=== PATIENT | male | born 1965 | race Caucasian/White ===

== ENCOUNTER 2017-08-05 20:33 | Observation (INO) | payer OTHER ==
[~2017-08-05] VITALS: Ht 193 cm; Wt 98.6 kg
[2017-08-05] MEDS ORDERED: SODIUM CHLORIDE 0.9% 1000ML 2,000 ML IV STA (21:09)
--- NOTE | 2017-08-05 21:16 | EMERGENCY ROOM VISIT NOTE ---
History Report prepared by Priscilla: Rodríguez Browning Under the Supervision of: Dr. Yoel Marin M.D. First contact with patient: 20:52 Chief Complaint: ARM PAIN Stated Complaint: NUMBNESS IN RIGHT ARM History of Present Illness The patient is a 51 year old male who presents to the Emergency Room with complaints of constant numbness to his right arm beginning earlier today. The patient states he was in the grocery store and reached into the cart to pick something up. He reports his hand locked and his entire arm went numb. The patient notes it lasted for about 5 minutes, would get better, and then numb again. He states this process repeated for a little, and the last time it was numb, it was numb for around an hour. The patient reports he was driving home from the grocery store and he could not lift his arm to place it on the steering wheel. He notes he was at his neighbor's house having his blood pressure taken when he felt better. The patient states he could lift his arm up until it was parallel with the ground. He reports he could not lift it higher than parallel because it would give out. The patient notes he thought his arm was slightly red. He states he currently thinks his arm is back to 90% function because the upper arm is still tingling. The patient reports he was leaving work this afternoon and he had a strong odor to his urine. He notes it has been a stressful week, and he has not been keeping up with his fluids. The patient states he does not take medication daily, and he has not seen his PCP in the past 5-6 years. He reports he typically drinks around four alcoholic drinks a day. The patient notes he has not drank today, and he has gone days without drinking alcohol before. 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 The patient denies fevers, chills , cough, congestion, nausea, vomiting, diarrhea, neck pain, a history of smoking , dizziness, and headaches. Source of History: patient Onset: earlier today Position: arm (right) Symptom Intensity: 10% disabled currently Quality: numbness Timing: constant Associated Symptoms: No fevers, No chills, No headache, No cough, No neck pain, No nausea, No vomiting, No diarrhea Note: Denies: congestion, a history of smoking, dizziness Review of Systems See HPI for pertinent positives and negatives. A total of ten systems were reviewed and were otherwise negative. Past Medical & Surgical Medical Problems: (1) No Known Active Medical Problems Family History Patient reports no known family medical history. Social History Smoking Status: Never Smoker Alcohol Use: occasionally Marital Status: Housing Status: lives with significant other Occupation Status: employed Current/Historical Medications Scheduled Tadalafil (Cialis), 10 MG PO UD Scheduled PRN Ibuprofen Tab (Advil), 600 MG PO TID PRN for Headache or Pain Allergies Coded Allergies: No Known Allergies (Unverified , 08/05/17) Physical Exam Vital Signs Date Time Temp Pulse Resp B/P (MAP) Pulse Ox O2 Delivery O2 Flow Rate FiO2 08/05/17 22:47 63 18 147/94 98 Room Air 08/05/17 21:40 69 08/05/17 21:35 97 Room Air 08/05/17 20:43 36.3 78 20 156/93 99 Room Air Physical Exam GENERAL: Awake, alert, anxious-appearing, in no distress HENT: Normocephalic, atraumatic. Oropharynx has dry mucous membranes, otherwise unremarkable. EYES: Normal conjunctiva. Sclera non-icteric. NECK: Supple. No nuchal rigidity. FROM. No JVD. RESPIRATORY: Clear to auscultation. CARDIAC: Regular rate, normal rhythm. Extremities warm and well perfused. Pulses equal. ABDOMEN: Soft, non-distended. No tenderness to palpation. No rebound or guarding. No masses. RECTAL: Deferred. MUSCULOSKELETAL: Chest examination reveals no tenderness. The back is symmetrical on inspection without obvious abnormality. There is no CVA tenderness to palpation. No joint edema. LOWER EXTREMITIES: Calves are equal size bilaterally and non-tender. No edema. No discoloration. NEURO: Normal sensorium. No sensory or motor deficits noted. normal cerebellar function with ecyrnz-yb-tcpf, alternating palms, bway-np-ocyv SKIN: No rash or jaundice noted. Medical Decision & Procedures ER Provider Diagnostic Interpretation: Radiology results as stated below per my review and radiologist interpretation: RIGHT SHOULDER 3 VIEWS HISTORY: Right arm pain, numbness, weakness COMPARISON: None. FINDINGS: There is no fracture or dislocation. Soft tissues are unremarkable. The right clavicle appears intact. IMPRESSION: No fracture or dislocation within the right shoulder. Electronically signed by: Chuck Berkowitz M.D. 08/05/2017 10:12 PM Dictated Date/Time: 08/05/2017 10:11 PM CHEST ONE VIEW PORTABLE HISTORY: Atypical CHEST PAIN COMPARISON: None. FINDINGS: The lungs are clear. Cardiac silhouette is normal in size. No pleural effusions. No pneumothorax. IMPRESSION: No acute process. Electronically signed by: Chuck Berkowitz M.D. 08/05/2017 10:16 PM Dictated Date/Time: 08/05/2017 10:15 PM --- STATRAD PreliminaryFindingsOnly See Final Report For Complete Findings CTANECK: Normal CTAof the neck. No definite evidence of arterial thoracic outlet syndrome. No evidence of narrowing/compression of the left subclavian vein. Evaluation of the right subclavian vein is somewhat limited byartifact from the IVcontrast, but there also does not appear to be significant narrowing/ compression of the right subclavian vein. Ossifications in the nuchal ligament are likelyrelated to remote trauma. PreliminaryFindingsOnly See Final Report For Complete Findings CT HEAD: No acute intracranial abnormalityidentified. Mild mucosal thickening in the anterior sphenoid sinuses and ethmoid air cells. Mild mucosal thickening in the maxillarysinuseswith small polyps versus mucous retention cysts in the left maxillarysinus. Tinypolyp versus mucous retention cyst in the left frontal sinus. CTAHEAD: Normal CTAof the head. Radiologist: Dave Diaz M.D. Laboratory Results 08/05/17 21:35 Red Blood Count 4.26, Mean Corpuscular Volume 86.6, Mean Corpuscular Hemoglobin 30.8, Mean Corpuscular Hemoglobin Concent 35.5, Mean Platelet Volume 8.9, Neutrophils (%) (Auto) 43.7, Lymphocytes (%) (Auto) 37.6, Monocytes (%) (Auto) 9.0, Eosinophils (%) (Auto) 8.9, Basophils (%) (Auto) 0.6, Neutrophils # (Auto) 2.70, Lymphocytes # (Auto) 2.33, Monocytes # (Auto) 0.56, Eosinophils # (Auto) 0.55, Basophils # (Auto) 0.04 08/05/17 21:35 Test 08/05/17 21:35 4/12/18 22:55 White Blood Count 6.19 K/uL (4.8-10.8) Red Blood Count 4.26 M/uL (4.7-6.1) Hemoglobin 13.1 g/dL (14.0-18.0) Hematocrit 36.9 % (42-52) Mean Corpuscular Volume 86.6 fL (80-100) Mean Corpuscular Hemoglobin 30.8 pg (25-34) Mean Corpuscular Hemoglobin Concent 35.5 g/dl (32-36) Platelet Count 287 K/uL (130-400) Mean Platelet Volume 8.9 fL (7.4-10.4) Neutrophils (%) (Auto) 43.7 % Lymphocytes (%) (Auto) 37.6 % Monocytes (%) (Auto) 9.0 % Eosinophils (%) (Auto) 8.9 % Basophils (%) (Auto) 0.6 % Neutrophils # (Auto) 2.70 K/uL (1.4-6.5) Lymphocytes # (Auto) 2.33 K/uL (1.2-3.4) Monocytes # (Auto) 0.56 K/uL (0.11-0.59) Eosinophils # (Auto) 0.55 K/uL (0-0.5) Basophils # (Auto) 0.04 K/uL (0-0.2) RDW Standard Deviation 40.4 fL (36.4-46.3) RDW Coefficient of Variation 12.7 % (11.5-14.5) Immature Granulocyte % (Auto) 0.2 % Immature Granulocyte # (Auto) 0.01 K/uL (0.00-0.02) Anion Gap 4.0 mmol/L (3-11) Est Creatinine Clear Calc Drug Dose 98.2 ml/min Estimated GFR () 91.0 Estimated GFR (Non- 78.5 BUN/Creatinine Ratio 19.4 (10-20) Calcium Level 8.2 mg/dl (8.5-10.1) Magnesium Level 2.2 mg/dl (1.8-2.4) Total Bilirubin 0.6 mg/dl (0.2-1) Direct Bilirubin 0.1 mg/dl (0-0.2) Aspartate Amino Transf (AST/SGOT) 20 U/L (15-37) Alanine Aminotransferase (ALT/SGPT) 42 U/L (12-78) Alkaline Phosphatase 73 U/L (45-117) Troponin I < 0.015 ng/ml (0-0.045) Total Protein 6.9 gm/dl (6.4-8.2) Albumin 4.0 gm/dl (3.4-5.0) Lipase 125 U/L (73-393) Thyroid Stimulating Hormone (TSH) 1.050 uIu/ml (0.300-4.500) Urine Color YELLOW Urine Appearance CLEAR (CLEAR) Urine pH 6.0 (4.5-7.5) Urine Specific [place] 1.012 (1.000-1.030) Urine Protein NEG (NEG) Urine Glucose (UA) NEG (NEG) Urine Ketones NEG (NEG) Urine Occult Blood NEG (NEG) Urine Nitrite NEG (NEG) Urine Bilirubin NEG (NEG) Urine Urobilinogen NEG (NEG) Urine Leukocyte Esterase NEG (NEG) Laboratory results reviewed by me Medications Administered Medications (Trade) Dose Ordered Sig/Jumana Route Start Time Stop Time Status Last Admin Dose Admin Sodium Chloride 2,000 ml @ 999 mls/hr Q2H1M STAT IV 08/05/17 21:09 08/05/17 23:09 DC 08/05/17 21:35 999 MLS/HR ECG Per My Interpretation Indication: other (numbness) Rate (beats per minute): 64 Rhythm: normal sinus Findings: no acute ischemic change, other (Normal axis) ED Course 2056: The patient was evaluated in room B09. A complete history and physical exam was performed. 2222: The nurse informed me the patient is having similar symptoms to a panic attack. 2317: I reevaluated the patient and discussed current exam findings with him. Medical Decision I reviewed the patient's past medical history, medications, and the nursing notes as described above. Differential diagnosis: Etiologies such as metabolic, infection, hypo/hyperglycemia, electrolyte abnormalities, cardiac sources, intracerebral event, toxicologic, neurologic, as well as others were entertained. The patient is a 51-year-old gentleman who presents emergency department after having a transient episode of right arm numbness and weakness that occurred prior to arrival per hpi. On arrival the patient is anxious appearing but no acute distress, afebrile stable vital signs. He is neurologically intact including normal cerebellar function with sjdytw-de-gfyf, alternating palms, iwtu-sq-jpws. Labs unremarkable. EKG unremarkable. Chest x-ray negative. CTA of the head and neck with contrast unremarkable for acute infarcts or large vessel occlusion. Moreover there is no evidence of subclavian compromise to suggest thoracic outlet syndrome given that the patient reports that his symptoms occurred when he was reaching out to grab something with his arm and noticed it briefly turned darker red. Given the patient's report of prolonged albeit transient right upper extremity paresis, it is reasonable to admit the patient for further TIA and CVA rule out. Case was discussed with Dr. Pryor [facility] hospitalist, who will evaluate the patient for admission. Medication Reconcilliation Current Medication List: was personally reviewed by me Blood Pressure Screening Patient's blood pressure: Elevated blood pressure Blood pressure disposition: Elevated BP felt to be situational Consults Time Called: [id number] Consulting Physician: Dr. P[facility] Returned Call: [phone] Will evaluate patient for admission. Impression Primary Impression: Right arm weakness Scribe Attestation The scribe's documentation has been prepared under my direction and personally reviewed by me in its entirety. I confirm that the note above accurately reflects all work, treatment, procedures, and medical decision making performed by me. Departure Information Patient Instructions My [facility]
[2017-08-05 21:50] LABS: BASO % 0.6 %; BASO ABS # 0.04 K/uL (0-0.2); EOS % 8.9 %; EOS ABS # 0.55 K/uL (0-0.5); HEMATOCRIT 36.9 % (42-52); HEMOGLOBIN 13.1 g/dL (14.0-18.0); IG# 0.01 K/uL (0.00-0.02); LYMPH % 37.6 %; LYMPH ABS # 2.33 K/uL (1.2-3.4); MEAN CELL VOLUME 86.6 fL (80-100); MEAN CORPUSCULAR HEMOGLOBIN 30.8 pg (25-34); MEAN CORPUSCULAR HGB CONC 35.5 g/dl (32-36); MEAN PLATELET VOLUME 8.9 fL (7.4-10.4); MONO ABS # 0.56 K/uL (0.11-0.59); NEUT % 43.7 %; PLATELET COUNT 287 K/uL (130-400); RED CELL DISTRIBUTION WIDTH CV 12.7 % (11.5-14.5); RED CELL DISTRIBUTION WIDTH SD 40.4 fL (36.4-46.3); WHITE BLOOD COUNT 6.19 K/uL (4.8-10.8)
[2017-08-05 22:07] LABS: ALT/SGPT 42 U/L (12-78); AST/SGOT 20 U/L (15-37); BLOOD UREA NITROGEN 21 mg/dl (7-18); CALCIUM 8.2 mg/dl (8.5-10.1); CARBON DIOXIDE 26 mmol/L (21-32); CREATININE 1.08 mg/dl (0.60-1.40); GLUCOSE 89 mg/dl (70-99); LIPASE 125 U/L (73-393); POTASSIUM 3.6 mmol/L (3.5-5.1); SODIUM 140 mmol/L (136-145)
--- NOTE | 2017-08-05 22:14 | DIAGNOSTIC IMAGING REPORT ---
RIGHT SHOULDER 3 VIEWS HISTORY: Right arm pain, numbness, weakness COMPARISON: None. FINDINGS: There is no fracture or dislocation. Soft tissues are unremarkable. The right clavicle appears intact. IMPRESSION: No fracture or dislocation within the right shoulder. Electronically signed by: Chuck Berkowitz M.D. 08/05/2017 10:12 PM Dictated Date/Time: 08/05/2017 10:11 PM
--- NOTE | 2017-08-05 22:17 | DIAGNOSTIC IMAGING REPORT ---
CHEST ONE VIEW PORTABLE HISTORY: Atypical CHEST PAIN COMPARISON: None. FINDINGS: The lungs are clear. Cardiac silhouette is normal in size. No pleural effusions. No pneumothorax. IMPRESSION: No acute process. Electronically signed by: Chuck Berkowitz M.D. 08/05/2017 10:16 PM Dictated Date/Time: 08/05/2017 10:15 PM
[2017-08-05 22:18] LABS: ALKALINE PHOSPHATASE 73 U/L (45-117); TOTAL PROTEIN 6.9 gm/dl (6.4-8.2)
[2017-08-05] MEDS ORDERED: TADA10TA PO (22:54)
[2017-08-05] MEDS ORDERED: IBUP-103 PO (22:54)
[2017-08-06] VITALS (8 sets, daily range): BP systolic 123–171; BP diastolic 75–93; PULSE 52–71; TEMP 36.3–37.1; O2SAT 96–99; Ht 193 cm; Wt 98.6 kg
--- NOTE | 2017-08-06 00:15 | History and Physical ---
History & Physical Date & Time of Service: Aug 06, 2017 at 00:15 Chief Complaint: Numbness In Right Arm Primary Care Physician: Joe Lunsford III, M.D. History of Present Illness Source: patient, family Patient is a 51-year-old male with past medical history of alcohol use disorder presents with history of sudden onset of right arm weakness and numbness. Patient reports that he was shopping at a grocery store around 7 PM and was trying to chart picker an object when he started to notice "locking of hand" and right numbness. He states the symptoms resolved after 5 minutes and again had recurrence of right arm weakness and numbness. Symptoms persisted for about 1 hour prior to ED arrival. Patient also reports a brief episode when patient could not lift his right arm above his shoulder level. Currently his symptoms resolved while in ED. patient states he is under a lot of stress lately secondary to work. 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 Denies any drug use or alcohol intake today. Preliminary Neck CTA showed no definite evidence of arterial thoracic outlet syndrome and CT head showed no acute intracranial abnormality. Denies any history of chest pain, SOB, dizziness, pedal edema, diaphoresis, cough, fever, chills, fall, head trauma, LOC, headache, change in vision, slurred speech, facial deformity, bowel/bladder incontinence, nausea, vomiting, abdominal pain, diarrhea, dysuria. Past Medical/Surgical History Medical Problems: Right Arm weakness, Alcohol Use Disorder Family History FH: heart disease GRANDFATHER Lung cancer FATHER Stroke GRANDFATHER Reviewed as above Social History Smoking Status: Never Smoker Alcohol Use: 4 drinks on most days Drug Use: none (denies) Marital Status: Occupational Status: employed Allergies Coded Allergies: No Known Allergies (Unverified , 08/05/17) Home Medications Scheduled Tadalafil (Cialis), 10 MG PO UD Scheduled PRN Ibuprofen Tab (Advil), 600 MG PO TID PRN for Headache or Pain Review of Systems See HPI for pertinent positives & negatives. A total of 10 systems reviewed and were otherwise negative. Physical Exam Vital Signs Date Time Temp Pulse Resp B/P (MAP) Pulse Ox O2 Delivery O2 Flow Rate FiO2 08/05/17 22:47 63 18 147/94 98 Room Air 08/05/17 21:40 69 08/05/17 21:35 97 Room Air 08/05/17 20:43 36.3 78 20 156/93 99 Room Air General Appearance: WD/WN, no apparent distress Head: normocephalic, atraumatic Eyes: normal inspection, PERRL, EOMI, sclerae normal ENT: normal ENT inspection, hearing grossly normal Neck: supple, trachea midline Respiratory/Chest: chest non-tender, lungs clear, normal breath sounds, no respiratory distress, no accessory muscle use Cardiovascular: regular rate, rhythm, no edema, no murmur Abdomen/GI: normal bowel sounds, non tender, soft Back: normal inspection Extremities/Musculoskelatal: normal inspection, no pedal edema Neurologic/Psych: neon pumper II-XII nml as tested, no motor/sensory deficits, alert, normal mood/affect, normal reflexes, oriented x 3 Skin: normal color, warm/dry Diagnostics Laboratory Results Results Past 24 Hours Test 08/05/17 21:35 08/05/17 22:55 Range/Units White Blood Count 6.19 4.8-10.8 K/uL Red Blood Count 4.26 4.7-6.1 M/uL Hemoglobin 13.1 14.0-18.0 g/dL Hematocrit 36.9 42-52 % Mean Corpuscular Volume 86.6 80-100 fL Mean Corpuscular Hemoglobin 30.8 25-34 pg Mean Corpuscular Hemoglobin Concent 35.5 32-36 g/dl Platelet Count 287 130-400 K/uL Mean Platelet Volume 8.9 7.4-10.4 fL Neutrophils (%) (Auto) 43.7 % Lymphocytes (%) (Auto) 37.6 % Monocytes (%) (Auto) 9.0 % Eosinophils (%) (Auto) 8.9 % Basophils (%) (Auto) 0.6 % Neutrophils # (Auto) 2.70 1.4-6.5 K/uL Lymphocytes # (Auto) 2.33 1.2-3.4 K/uL Monocytes # (Auto) 0.56 0.11-0.59 K/uL Eosinophils # (Auto) 0.55 0-0.5 K/uL Basophils # (Auto) 0.04 0-0.2 K/uL RDW Standard Deviation 40.4 36.4-46.3 fL RDW Coefficient of Variation 12.7 11.5-14.5 % Immature Granulocyte % (Auto) 0.2 % Immature Granulocyte # (Auto) 0.01 0.00-0.02 K/uL Sodium Level 140 136-145 mmol/L Potassium Level 3.6 3.5-5.1 mmol/L Chloride Level 110 98-107 mmol/L Carbon Dioxide Level 26 21-32 mmol/L Anion Gap 4.0 3-11 mmol/L Blood Urea Nitrogen 21 7-18 mg/dl Creatinine 1.08 0.60-1.40 mg/dl Est Creatinine Clear Calc Drug Dose 98.2 ml/min Estimated GFR () 91.0 Estimated GFR (Non- 78.5 BUN/Creatinine Ratio 19.4 10-20 Random Glucose 89 70-99 mg/dl Calcium Level 8.2 8.5-10.1 mg/dl Magnesium Level 2.2 1.8-2.4 mg/dl Total Bilirubin 0.6 0.2-1 mg/dl Direct Bilirubin 0.1 0-0.2 mg/dl Aspartate Amino Transf (AST/SGOT) 20 15-37 U/L Alanine Aminotransferase (ALT/SGPT) 42 12-78 U/L Alkaline Phosphatase 73 45-117 U/L Troponin I < 0.015 0-0.045 ng/ml Total Protein 6.9 6.4-8.2 gm/dl Albumin 4.0 3.4-5.0 gm/dl Lipase 125 73-393 U/L Thyroid Stimulating Hormone (TSH) 1.050 0.300-4.500 uIu/ml Urine Color YELLOW Urine Appearance CLEAR CLEAR Urine pH 6.0 4.5-7.5 Urine Specific [place] 1.012 1.000-1.030 Urine Protein NEG NEG Urine Glucose (UA) NEG NEG Urine Ketones NEG NEG Urine Occult Blood NEG NEG Urine Nitrite NEG NEG Urine Bilirubin NEG NEG Urine Urobilinogen NEG NEG Urine Leukocyte Esterase NEG NEG Diagnostic Radiology CT HEAD: No acute intracranial abnormality identified. Mild mucosal thickening in the anterior sphenoid sinuses and ethmoid air cells. Mild mucosal thickening in the maxillary sinuses with small polyps versus mucous retention cysts in the left maxillary sinus. Tiny polyp versus mucous retention cyst in the left frontal sinus. CTA Neck: Normal CTA of the neck No definite evidence of arterial thoracic outlet syndrome. EKG EKG:NSR, QTC:400 Impression Assessment and Plan Stroke like symptoms: Possible TIA Presented with transient Right arm weakness, numbness Preliminary CT Head and CTA neck: No acute process Shoulder X ray:No fracture or dislocation within the right shoulder Admit in Tele Stroke work up including lipid panel, A1C, ECHO Speech and swallow eval Start aspirin Neuro checks, Neurology consult PT/OT Allow permissive HTN in setting of possible acute CVA/TIA Further work up as per Neurology TSH: normal Toxicology Screen:pending Alcohol Use: Started on thiamine and folic acid No known history of withdrawal in the past Thyroid Nodule: Incidental finding on CTA neck TSH: normal Further work up as outpatient DVT Px: SCDs Code Status: Full Code Disposition: Expect to discharge home when stable. Resuscitation Status VTE Prophylaxis Will order VTE Prophylaxis: Yes
[2017-08-06] MEDS ORDERED: ACETAMINOPHEN 325 MG TAB PO PRN (01:15)
[2017-08-06] MEDS ORDERED: ONDANSETRON INJ 2 MG/ML 2 ML VIAL IV PRN (01:15)
[2017-08-06] MEDS ORDERED: ASPIRIN 325 MG ECTAB PO STA (01:22)
[2017-08-06] MEDS ORDERED: PHARMACIST DISCHARGE MED REC CONSULT PRN (01:30)
[2017-08-06] MEDS ORDERED: IV FLUIDS COMPLETED PRN (01:45)
[2017-08-06] MEDS ORDERED: SODIUM CHLORIDE 0.9% 500ML 500 ML IV ONE (02:15)
[2017-08-06 07:06] LABS: HEMATOCRIT 35.5 % (42-52); HEMOGLOBIN 12.3 g/dL (14.0-18.0); MEAN CELL VOLUME 86.6 fL (80-100); MEAN CORPUSCULAR HGB CONC 34.6 g/dl (32-36); MEAN PLATELET VOLUME 8.9 fL (7.4-10.4); PLATELET COUNT 258 K/uL (130-400); RED CELL DISTRIBUTION WIDTH CV 12.6 % (11.5-14.5); RED CELL DISTRIBUTION WIDTH SD 40.2 fL (36.4-46.3); WHITE BLOOD COUNT 5.93 K/uL (4.8-10.8)
--- NOTE | 2017-08-06 07:09 | DIAGNOSTIC IMAGING REPORT ---
CT ANGIOGRAPHY OF THE NECK WITH CONTRAST CLINICAL HISTORY: Transient right arm numbness. Evaluate for thoracic outlet syndrome. COMPARISON STUDY: No previous studies for comparison. Technique: CT angiography of the carotid and vertebral arteries was obtained using [employer] 320 IV and 3D reconstruction on an independent workstation. NASCET criteria was utilized. A dose lowering technique was utilized adhering to the principles of ALARA. Findings: Lung apices are clear. A 1 cm right lobe thyroid nodule is noted. Epiglottis is normal. No cervical lymphadenopathy or mass is identified by CT. The bilateral common carotid, internal carotid and vertebral arteries are patent. There is no stenosis or dissection. Evaluation for right-sided thoracic outlet syndrome is compromised due to streak artifact from contrast within the right subclavian vein. However, the vein does not appear compressed and the right subclavian artery is patent. No mass or cervical rib is noted. The left subclavian vein is not compressed. The left subclavian artery is patent. IMPRESSION: 1. Unremarkable CTA of the neck. 2. No evidence for thoracic outlet syndrome. Evaluation for right-sided thoracic outlet syndrome mildly compromised due to streak artifact from contrast within the right subclavian vein but no significant narrowing of the right subclavian artery or vein. No mass or cervical rib. Electronically signed by: Samuel Corbett M.D. 08/06/2017 7:08 AM Dictated Date/Time: 08/06/2017 7:02 AM
--- NOTE | 2017-08-06 07:15 | DIAGNOSTIC IMAGING REPORT ---
CT ANGIOGRAM OF THE BRAIN COMBO CLINICAL HISTORY: Transient ischemic attack. COMPARISON STUDY: No priors. TECHNIQUE: Unenhanced axial CT scan of the brain is performed. Subsequently, following the IV administration of 93 cc of Optiray 320, CT angiogram of the brain was performed from the skull base to the vertex. Images are reviewed in the axial, sagittal, and coronal planes. 3-D MIPS images are created and assessed. IV contrast was administered without complication. A dose lowering technique was utilized adhering to the principles of ALARA. CT DOSE: 1116.01 mGy.cm FINDINGS: Brain parenchyma: The brain parenchyma is normal in appearance. There is no hemorrhage, mass effect, or evidence of acute territorial ischemia by CT criteria. There is no evidence of enhancing mass lesion on the angiogram phase images. No extra-axial fluid collection is seen. Ferguson-white matter differentiation is preserved. Ventricles, sulci, and cisterns: Normal in configuration. CT angiogram of the brain: There is mild atherosclerotic calcification of the cavernous carotid arteries. There is a right posterior communicating artery. The internal carotid arteries are widely patent, as are the anterior and middle cerebral arteries. The vertebrobasilar system and posterior cerebral arteries are widely patent. The vertebral arteries are codominant. There is no aneurysm, high-grade stenosis, or focal vessel cutoff identified throughout the intracranial circulation. Dural sinuses: Clear as visualized. Orbits: The bony orbits are intact. The orbital contents are normal as visualized. Sinuses and mastoids: Trace mucosal thickening is seen in the maxillary antra, the left sphenoid sinus, and ethmoid sinuses. The mastoid air cells are well pneumatized. Calvarium: Unremarkable. IMPRESSION: 1. There is no hemorrhage, mass effect, or evidence of acute territorial ischemia by CT criteria. 2. Unremarkable CT angiogram of the brain. Electronically signed by: Jere Younger M.D. 08/06/2017 7:14 AM Dictated Date/Time: 08/06/2017 7:10 AM
[2017-08-06 07:39] LABS: CALCIUM 7.9 mg/dl (8.5-10.1); CREATININE 0.97 mg/dl (0.60-1.40); POTASSIUM 3.7 mmol/L (3.5-5.1)
[2017-08-06 07:51] LABS: HEMOGLOBIN A1C 5.4 % (4.5-5.6)
[2017-08-06] MEDS: ASPIRIN 81 MG ECTAB PO SCH (08:43)
[2017-08-06] MEDS: THIAMINE HCL 100 MG TAB PO SCH (08:43)
--- NOTE | 2017-08-06 11:06 | ECHOCARDIOGRAM REPORT ---
*NOTICE TO RECEIVING [facility] [employer] This information is strictly Confidential and protected under [place] law. [place] law prohibits you from making any further disclosure of this information unless further disclosure is expressly permitted by the written consent of the person to whom it pertains or is authorized by law. A general authorization for the release of medical or other information is not sufficient for this purpose. Hospital accepts no responsibility if the information is made available to any other person, INCLUDING THE PATIENT. Interpretation Summary * Name: PASHA HOBBS Study Date: 08/06/2017 07:19 AM BP: 78/148 mmHg * Patient Location: C.2T\S\S239\S\2 HR: 61 * : 1965 (M/d/yyyy) Gender: Male Height: 76 in * Age: 51 yrs Ethnicity: CA Weight: 226 lb * Ordering Physician: Charbel Pryor * Referring Physician: Self, Referred * Performed By: Leyla Dias RDCS * * Reason For Study: Stroke-like symptoms * BSA: 2.3 m2 * -- Conclusions -- * The left ventricle is normal in size. * Left ventricular systolic function is normal. * Ejection Fraction = 55-60%. * The right ventricular systolic function is normal. * The left atrial size is normal. * Right atrial size is normal. * Injection of contrast documented an interatrial shunt. * This is a low risk PFO. Procedure Details * A complete two-dimensional transthoracic echocardiogram was performed (2D, M-mode, Doppler and color flow Doppler). * A saline contrast injection was performed to assess for cardiac shunting. * The injection was performed through an intravenous line in the right arm. * The attending nurse who injected the saline contrast was Daryl Greene RN. * A total of 10 cc of agitated saline was given. Left Ventricle * The left ventricle is normal in size. * There is normal left ventricular wall thickness. * Ejection Fraction = 55-60%. * Left ventricular systolic function is normal. Right Ventricle * The right ventricle is normal size. * The right ventricular systolic function is normal. Atria * The left atrial size is normal. * Right atrial size is normal. * Injection of contrast documented an interatrial shunt. Mitral Valve * The mitral valve anatomy is normal. * There is trace mitral regurgitation. Tricuspid Valve * The tricuspid valve anatomy is normal. * Significant tricuspid regurgitation is absent. Aortic Valve * The aortic valve is trileaflet. * The aortic valve opens well. * Trace aortic regurgitation. Pulmonic Valve * The pulmonic valve is not well seen, but is grossly normal. * There is no significant pulmonary regurgitation. Great Vessels * The aortic root and proximal ascending aorta are normal sized. Pericardium/Pleural * There is no pericardial effusion. MMode 2D Measurements and Calculations IVSd 0.96 cm LVIDd 4.3 cm LVIDs 2.9 cm LVPWd 1.2 cm IVS/LVPW 0.83 FS 32.7 % EDV(Teich) 84.6 ml ESV(Teich) 32.7 ml EF(Teich) 61.3 % EDV(cubed) 81.4 ml ESV(cubed) 24.9 ml EF(cubed) 69.5 % LV mass(C)d 156.3 grams LV mass(C)dI 67.0 grams/m\S\2 SV(Teich) 51.9 ml SI(Teich) 22.2 ml/m\S\2 SV(cubed) 56.5 ml SI(cubed) 24.2 ml/m\S\2 Ao root diam 3.1 cm Ao root area 7.8 cm\S\2 ACS 2.4 cm LA dimension 3.9 cm asc Aorta Diam 3.0 cm LA/Ao 1.2 LVOT diam 2.0 cm LVOT area 3.2 cm\S\2 LVAd ap4 31.4 cm\S\2 LVLd ap4 8.0 cm EDV(MOD-sp4) 99.7 ml EDV(sp4-el) 104.2 ml LVAs ap4 19.2 cm\S\2 LVLs ap4 6.9 cm ESV(MOD-sp4) 43.6 ml ESV(sp4-el) 45.2 ml EF(MOD-sp4) 56.3 % EF(sp4-el) 56.6 % LVAd ap2 34.7 cm\S\2 LVLd ap2 8.4 cm EDV(MOD-sp2) 118.5 ml EDV(sp2-el) 122.5 ml LVAs ap2 20.1 cm\S\2 LVLs ap2 6.7 cm ESV(MOD-sp2) 50.2 ml ESV(sp2-el) 51.0 ml EF(MOD-sp2) 57.7 % EF(sp2-el) 58.4 % LVLd %diff 4.1 % EDV(MOD-bp) 110.6 ml LVLs %diff -2.76 % ESV(MOD-bp) 46.6 ml EF(MOD-bp) 57.9 % SV(MOD-sp4) 56.1 ml SI(MOD-sp4) 24.0 ml/m\S\2 SV(MOD-sp2) 68.4 ml SI(MOD-sp2) 29.3 ml/m\S\2 SV(MOD-bp) 64.0 ml SI(MOD-bp) 27.4 ml/m\S\2 SV(sp4-el) 59.0 ml SI(sp4-el) 25.3 ml/m\S\2 SV(sp2-el) 71.6 ml SI(sp2-el) 30.7 ml/m\S\2 Doppler Measurements and Calculations MV E max merissa 86.3 cm/sec MV A max merissa 65.8 cm/sec MV E/A 1.3 MV dec time 0.27 sec Ao V2 max 94.2 cm/sec Ao max PG 3.5 mmHg Ao max PG (full) 0.54 mmHg LAWSON(V,A) 3.0 cm\S\2 LAWSON(V,D) 3.0 cm\S\2 LV V1 max PG 3.0 mmHg LV V1 max 86.7 cm/sec PA V2 max 98.4 cm/sec PA max PG 3.9 mmHg PA acc slope 349.4 cm/sec\S\2 PA acc time 0.18 sec PA pr(Accel) -0.17 mmHg
--- NOTE | 2017-08-06 14:17 | Neurology Consultation ---
Neurology Consultation Date of Consultation: Aug 06, 2017. Attending Physician: Joe Bejarano M.D. Primary Care Physician: Joe Lunsford III, M.D. Reason for Consultation: stroke like symptoms History of Present Illness Source: patient, spouse Boone is a 51 year old male with PMH EtOH use disorder presented with a sudden onset of right arm hand cramping and numbness. 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 They symptoms resolved in about 5 minutes and again had recurrence of right arm cramping and numbness. This recurred another time in total the symptoms last about 1 hours. There was a brief moment he couldn't lift his right arm above his shoulder level. He is under a lot of stress lately secondary to work. 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 Neck CTA showed no definite evidence of arterial thoracic outlet syndrome and CT head showed no acute intracranial abnormality. Denies history of CP, SOB, abdominal pain, migraine history, N,V, vision changes, slurred speech, hearing loss, falls or trauma to shoulder, no tick bites, no starting or stopping medications, drinks a pot of coffee daily. Past Medical/Surgical History Medical Problems: (1) Right arm weakness Status: Acute Social History Smoking Status: Never smoker Smokeless Tobacco Use: No Alcohol Use: 4 drinks on most days Drug Use: none (denies) Marital Status: Housing Status: lives with significant other Occupation Status: employed Allergies Coded Allergies: No Known Allergies (Unverified , 08/05/17) Current Inpatient Medications Current Inpatient Medications Medications (Trade) Dose Ordered Sig/Jumana Route Start Time Stop Time Status Last Admin Dose Admin Acetaminophen (Tylenol Tab) 650 mg Q4H PRN PO 08/06/17 01:15 09/05/17 01:14 08/06/17 11:43 650 MG Ondansetron HCl (Zofran Inj) 4 mg Q6H PRN IV 08/06/17 01:15 09/05/17 01:14 Aspirin (Ecotrin Tab) 81 mg QAM PO 08/06/17 09:00 09/05/17 08:59 08/06/17 08:43 81 MG Thiamine HCl (Vitamin B-1 Tab) 100 mg QAM PO 08/06/17 09:00 09/05/17 08:59 08/06/17 08:43 100 MG Folic Acid (Folvite Tab) 1 mg QAM PO 08/06/17 09:00 09/05/17 08:59 08/06/17 08:43 1 MG Miscellaneous Information (Pharmacist Discharge Med Rec Consult) 1 ea UD PRN N/A 08/06/17 01:30 09/05/17 01:29 Miscellaneous (Iv Fluids Completed) 1 ea PRN PRN N/A 08/06/17 01:45 08/06/18 01:44 Physical Exam Vital Signs (Past 24 Hrs): Date Time Temp Pulse Resp B/P (MAP) Pulse Ox O2 Delivery O2 Flow Rate FiO2 08/06/17 12:00 36.3 57 16 151/93 (112) 98 Room Air 08/06/17 12:00 Room Air 08/06/17 08:00 Room Air 08/06/17 07:23 36.5 61 18 148/78 (101) 99 08/06/17 04:00 Room Air 08/06/17 03:57 36.6 67 18 155/79 (104) 97 Room Air 08/06/17 02:14 36.6 71 18 152/92 98 Room Air 08/06/17 01:36 70 18 149/89 97 Room Air 08/06/17 01:27 99 08/05/17 22:47 63 18 147/94 98 Room Air 08/05/17 21:40 69 08/05/17 21:35 97 Room Air 08/05/17 20:43 36.3 78 20 156/93 99 Room Air Physical Exam: Constitutional: appearance nourished, healthy and normal Ears, Nose, Mouth and Throat: mucous membranes moist, no injection and skin normal, eyes normal Cardiovascular: normal S-1 and S-2 and regular rate and rhythm Respiratory: clear to auscultation (CTA) and no rales, rhonchi or wheeze Musculoskeletal: no peripheral edema and good distal pulses Skin: no stigmata of neurocutaneous disease noted and normal and intact Eyes: extraocular muscles intact (EOMI) and pupils equal, round and reactive to light (PERRL) NEUROLOGIC EXAMINATION: Mental status: Alert and interactive Oriented to full date and location Oriented to person Speech fluent with no evidence of aphasia Cranial Nerves smile eye brow raise symmetric Reflexes: Deep tendon reflexes were symmetrical and graded 2/5. Plantar responses were flexor. Sensory: vibration or cool, light touch, Tinel and Phalen negative no ulnar tenderness with palpation Coordination: Romberg absent Gait/Stance: Posture normal. Gait normal: with steady with steps, base, turning, heel and toe walking and tandem gait. Motor: Negative for pronator drift of out stretched arms with eyes closed. 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, hip flex ext plantar flex ext 5/5 bilaterally Laboratory Results Past 24 Hours: 08/06/17 06:30 08/06/17 06:30 Test 08/05/17 21:35 08/05/17 22:55 08/06/17 06:30 08/06/17 11:05 Immature Granulocyte % (Auto) 0.2 % White Blood Count 6.19 K/uL (4.8-10.8) Red Blood Count 4.26 M/uL (4.7-6.1) 4.10 M/uL (4.7-6.1) Hemoglobin 13.1 g/dL (14.0-18.0) Hematocrit 36.9 % (42-52) Mean Corpuscular Volume 86.6 fL (80-100) 86.6 fL (80-100) Mean Corpuscular Hemoglobin 30.8 pg (25-34) 30.0 pg (25-34) Mean Corpuscular Hemoglobin Concent 35.5 g/dl (32-36) 34.6 g/dl (32-36) Platelet Count 287 K/uL (130-400) Mean Platelet Volume 8.9 fL (7.4-10.4) 8.9 fL (7.4-10.4) Neutrophils (%) (Auto) 43.7 % Lymphocytes (%) (Auto) 37.6 % Monocytes (%) (Auto) 9.0 % Eosinophils (%) (Auto) 8.9 % Basophils (%) (Auto) 0.6 % Neutrophils # (Auto) 2.70 K/uL (1.4-6.5) Lymphocytes # (Auto) 2.33 K/uL (1.2-3.4) Monocytes # (Auto) 0.56 K/uL (0.11-0.59) Eosinophils # (Auto) 0.55 K/uL (0-0.5) Basophils # (Auto) 0.04 K/uL (0-0.2) Immature Granulocyte # (Auto) 0.01 K/uL (0.00-0.02) Total Bilirubin 0.6 mg/dl (0.2-1) Direct Bilirubin 0.1 mg/dl (0-0.2) Aspartate Amino Transf (AST/SGOT) 20 U/L (15-37) Alanine Aminotransferase (ALT/SGPT) 42 U/L (12-78) Alkaline Phosphatase 73 U/L (45-117) Troponin I < 0.015 ng/ml (0-0.045) Total Protein 6.9 gm/dl (6.4-8.2) Albumin 4.0 gm/dl (3.4-5.0) Lipase 125 U/L (73-393) Thyroid Stimulating Hormone (TSH) 1.050 uIu/ml (0.300-4.500) Urine Color YELLOW Urine Appearance CLEAR (CLEAR) Urine pH 6.0 (4.5-7.5) Urine Specific [place] 1.012 (1.000-1.030) Urine Protein NEG (NEG) Urine Glucose (UA) NEG (NEG) Urine Ketones NEG (NEG) Urine Occult Blood NEG (NEG) Urine Nitrite NEG (NEG) Urine Bilirubin NEG (NEG) Urine Urobilinogen NEG (NEG) Urine Leukocyte Esterase NEG (NEG) RDW Standard Deviation 40.2 fL (36.4-46.3) RDW Coefficient of Variation 12.6 % (11.5-14.5) Anion Gap 6.0 mmol/L (3-11) Est Creatinine Clear Calc Drug Dose 109.3 ml/min Estimated GFR () 103.6 Estimated GFR (Non- 89.4 BUN/Creatinine Ratio 18.1 (10-20) Estimated Average Glucose 108 mg/dl Hemoglobin A1c 5.4 % (4.5-5.6) Calcium Level 7.9 mg/dl (8.5-10.1) Magnesium Level 2.3 mg/dl (1.8-2.4) Triglycerides Level 63 mg/dl (0-150) Cholesterol Level 141 mg/dl (0-200) HDL Cholesterol 47 mg/dl LDL Cholesterol, Calculated 81 mg/dl VLDL Cholesterol, Calculated 13 mg/dl Cholesterol/HDL Ratio 3.0 Hepatitis C Antibody Screen NEG (NEG) Urine Opiates Screen NEG (NEG) Urine Methadone, Qualitative NEG (NEG) Urine Barbiturates NEG (NEG) Urine Phencyclidine (PCP) Level NEG (NEG) Ur Amphetamine/Methamphetamine NEG (NEG) MDMA (Ecstasy) Screen NEG (NEG) Urine Benzodiazepines Screen NEG (NEG) Urine Cocaine Metabolite NEG (NEG) Urine Marijuana (THC) NEG (NEG) Imaging shoulder xray- No fracture or dislocation within the right shoulder. CTA head- There is no hemorrhage, mass effect, or evidence of acute territorial ischemia by CT criteria. . Unremarkable CT angiogram of the brain. CTA neck- There is no hemorrhage, mass effect, or evidence of acute territorial ischemia by CT criteria. Unremarkable CT angiogram of the brain. Impression 51 year old with cramping and numbness of right arm Plan 1. CTA head and neck no vascular abnormalities 2. MRI with and without brain may be helpful 3. repetitive movements at work may be a ulnar nerve issue and carpal tunnel 4. further recommendations to follow I have seen and discussed above patient with Dr Alethea Barlow, neurology Pt seen and examined, exam nml. Suspect TIA, rec MRI c spine r/o cord etiologies. RA Barlow MD
--- NOTE | 2017-08-06 17:10 | DIAGNOSTIC IMAGING REPORT ---
BRAIN COMBO CLINICAL HISTORY: 51 years-old Male presenting with sudden onset right UE weakness numbness. TECHNIQUE: Multisequence, multiplanar MR imaging of the brain was performed before and after the administration of intravenous contrast. IV contrast: 10 mL of Gadavist. COMPARISON: None. FINDINGS: Ventricles and sulci normal in size. Periventricular and subcortical white matter T2/FLAIR hyperintensity, nonspecific but likely indicative of chronic small vessel ischemic change. No mass effect or midline shift. No restricted diffusion to suggest acute ischemia. No hemorrhage. No extra-axial fluid collection. T2 skull base flow voids preserved. No abnormal parenchymal enhancement. Bone marrow signal intensity within the calvarium within normal limits. IMPRESSION: 1. No acute intracranial pathology. No abnormal enhancement. 2. Nonspecific multifocal white matter signal abnormalities, possibly chronic small vessel ischemic change. Electronically signed by: Rajat Arenas M.D. 08/06/2017 5:08 PM Dictated Date/Time: 08/06/2017 5:04 PM
--- NOTE | 2017-08-06 20:51 | Progress Note ---
Medicine Progress Note Date & Time of Visit: Aug 06, 2017 at 11:20 . Subjective CC: Follow-up visit for right upper extremity weakness. HPI: Admitted yesterday after episode of intermittent right upper extremity weakness / paresthesiae. No recurrent symptoms. No headache. ROS: General- no fever Resp- no cough; no shortness of breath Cardiac- no chest pain GI- no nausea, no vomiting . Objective Last 8 Hrs Date Time Temp Pulse Resp B/P (MAP) Pulse Ox O2 Delivery O2 Flow Rate FiO2 08/06/17 19:06 36.4 71 18 144/81 (102) 96 Room Air 08/06/17 16:00 Room Air 08/06/17 15:02 36.6 52 20 171/90 (117) 98 Room Air Physical Exam: General-lying in bed, no distress Lungs- clear to auscultation; no respiratory distress Cardiovascular- RRR; no murmur; no gallop; no JVD; no pretibial edema Abdomen- + bowel sounds, soft, nontender Extremities- no cyanosis; no calf tenderness Neuro- alert, oriented; PERRL, EOMI; no facial palsy; no dysarthria; tongue midline; motor strength upper and lower extremities 5/5; patellar reflexes 2/2 bilaterally; plantar reflexes downgoing; no difficulty with finger-nose or heel to nicole Skin- warm & dry . Laboratory Results: Last 24 Hours Test 08/05/17 21:35 08/05/17 22:55 08/06/17 06:30 08/06/17 11:05 White Blood Count 6.19 K/uL 5.93 K/uL Red Blood Count 4.26 M/uL 4.10 M/uL Hemoglobin 13.1 g/dL 12.3 g/dL Hematocrit 36.9 % 35.5 % Mean Corpuscular Volume 86.6 fL 86.6 fL Mean Corpuscular Hemoglobin 30.8 pg 30.0 pg Mean Corpuscular Hemoglobin Concent 35.5 g/dl 34.6 g/dl Platelet Count 287 K/uL 258 K/uL Mean Platelet Volume 8.9 fL 8.9 fL Neutrophils (%) (Auto) 43.7 % Lymphocytes (%) (Auto) 37.6 % Monocytes (%) (Auto) 9.0 % Eosinophils (%) (Auto) 8.9 % Basophils (%) (Auto) 0.6 % Neutrophils # (Auto) 2.70 K/uL Lymphocytes # (Auto) 2.33 K/uL Monocytes # (Auto) 0.56 K/uL Eosinophils # (Auto) 0.55 K/uL Basophils # (Auto) 0.04 K/uL RDW Standard Deviation 40.4 fL 40.2 fL RDW Coefficient of Variation 12.7 % 12.6 % Immature Granulocyte % (Auto) 0.2 % Immature Granulocyte # (Auto) 0.01 K/uL Sodium Level 140 mmol/L 142 mmol/L Potassium Level 3.6 mmol/L 3.7 mmol/L Chloride Level 110 mmol/L 112 mmol/L Carbon Dioxide Level 26 mmol/L 24 mmol/L Anion Gap 4.0 mmol/L 6.0 mmol/L Blood Urea Nitrogen 21 mg/dl 18 mg/dl Creatinine 1.08 mg/dl 0.97 mg/dl Est Creatinine Clear Calc Drug Dose 98.2 ml/min 109.3 ml/min Estimated GFR () 91.0 103.6 Estimated GFR (Non- 78.5 89.4 BUN/Creatinine Ratio 19.4 18.1 Random Glucose 89 mg/dl 101 mg/dl Calcium Level 8.2 mg/dl 7.9 mg/dl Magnesium Level 2.2 mg/dl 2.3 mg/dl Total Bilirubin 0.6 mg/dl Direct Bilirubin 0.1 mg/dl Aspartate Amino Transf (AST/SGOT) 20 U/L Alanine Aminotransferase (ALT/SGPT) 42 U/L Alkaline Phosphatase 73 U/L Troponin I < 0.015 ng/ml Total Protein 6.9 gm/dl Albumin 4.0 gm/dl Lipase 125 U/L Thyroid Stimulating Hormone (TSH) 1.050 uIu/ml Urine Color YELLOW Urine Appearance CLEAR Urine pH 6.0 Urine Specific [place] 1.012 Urine Protein NEG Urine Glucose (UA) NEG Urine Ketones NEG Urine Occult Blood NEG Urine Nitrite NEG Urine Bilirubin NEG Urine Urobilinogen NEG Urine Leukocyte Esterase NEG Estimated Average Glucose 108 mg/dl Hemoglobin A1c 5.4 % Triglycerides Level 63 mg/dl Cholesterol Level 141 mg/dl HDL Cholesterol 47 mg/dl LDL Cholesterol, Calculated 81 mg/dl VLDL Cholesterol, Calculated 13 mg/dl Cholesterol/HDL Ratio 3.0 Hepatitis C Antibody Screen NEG Urine Opiates Screen NEG Urine Methadone, Qualitative NEG Urine Barbiturates NEG Urine Phencyclidine (PCP) Level NEG Ur Amphetamine/Methamphetamine NEG MDMA (Ecstasy) Screen NEG Urine Benzodiazepines Screen NEG Urine Cocaine Metabolite NEG Urine Marijuana (THC) NEG Assessment & Plan RUE WEAKNESS Resolved. CT head negative. CTA neck and head negative. Possible TIA. Neurology consulted. VTE PROPHYLAXIS SCD's ordered. Ambulate. DISPOSITION Expected discharge to home. Family Medicine follow-up with Dr. Lunsford. . Current Inpatient Medications: Current Inpatient Medications Medications (Trade) Dose Ordered Sig/Jumana Route Start Time Stop Time Status Last Admin Dose Admin Acetaminophen (Tylenol Tab) 650 mg Q4H PRN PO 08/06/17 01:15 09/05/17 01:14 08/06/17 11:43 650 MG Ondansetron HCl (Zofran Inj) 4 mg Q6H PRN IV 08/06/17 01:15 09/05/17 01:14 Aspirin (Ecotrin Tab) 81 mg QAM PO 08/06/17 09:00 09/05/17 08:59 08/06/17 08:43 81 MG Thiamine HCl (Vitamin B-1 Tab) 100 mg QAM PO 08/06/17 09:00 09/05/17 08:59 08/06/17 08:43 100 MG Folic Acid (Folvite Tab) 1 mg QAM PO 08/06/17 09:00 09/05/17 08:59 08/06/17 08:43 1 MG Miscellaneous Information (Pharmacist Discharge Med Rec Consult) 1 ea UD PRN N/A 08/06/17 01:30 09/05/17 01:29 Miscellaneous (Iv Fluids Completed) 1 ea PRN PRN N/A 08/06/17 01:45 08/06/18 01:44
[2017-08-07] VITALS (8 sets, daily range): BP systolic 103–114; BP diastolic 60–69; PULSE 59–74; TEMP 36.5–37.1; O2SAT 95–99
[2017-08-07] MEDS: ASPIRIN 81 MG ECTAB PO SCH (08:01)
[2017-08-07] MEDS: THIAMINE HCL 100 MG TAB PO SCH (08:02)
--- NOTE | 2017-08-07 10:06 | DIAGNOSTIC IMAGING REPORT ---
MRI CERVICAL WITHOUT CONTRAST CLINICAL HISTORY: Episode of right arm weakness and loss of feeling. TECHNIQUE: Sagittal and axial T1, T2 and STIR images were obtained. COMPARISON STUDY: No previous studies for comparison. There are no suspicious areas of marrow replacement. No intrinsic cervical cord lesions are visualized. C2-3: There is no evidence of disc bulge or focal herniation. There is no spinal or foraminal stenosis. C3-4: There is no evidence of disc bulge or focal herniation. There is no spinal or foraminal stenosis. C4-5: There are no disc bulges or focal herniations. There is no spinal or foraminal stenosis. C5-6 :There is a disc osteophyte complex present. There is moderate left-sided foraminal narrowing and mild right-sided foraminal narrowing. There is no significant spinal stenosis C6-7: There is no evidence of disc bulge or focal herniation. There is no evidence of spinal or foraminal stenosis. C7-T1: There is no evidence of disc bulge or focal herniation. There is no evidence of spinal or foraminal stenosis. IMPRESSION:Right-sided disc osteophyte complex at the C5-6 level. Moderate left-sided foraminal narrowing and mild right-sided foraminal narrowing. No significant spinal stenosis. Electronically signed by: Bryant Huddleston M.D. 08/07/2017 10:04 AM Dictated Date/Time: 08/07/2017 10:00 AM
--- NOTE | 2017-08-07 12:58 | DIAGNOSTIC IMAGING REPORT ---
ULTRASOUND VENOUS DOPPLER LWR EXT BILA CLINICAL HISTORY: Transient ischemic attack, possible patent foramen ovale. Possible DVT. COMPARISON STUDY: No previous studies for comparison. FINDINGS: Real-time and color flow Doppler imaging were performed. Flow was seen within the femoral, popliteal and calf veins with no intraluminal thrombus demonstrated. The saphenous vein is patent. IMPRESSION: No evidence of lower extremity DVT. Electronically signed by: Bryant Huddleston M.D. 08/07/2017 12:57 PM Dictated Date/Time: 08/07/2017 12:56 PM
--- NOTE | 2017-08-07 13:10 | PROGRESS NOTE ---
DATE: 08/07/2017 SUBJECTIVE: I am seeing the patient in followup of right arm weakness. MRI of the brain shows chronic ischemic changes, nothing acute. MRI of the cervical spine shows minor discogenic disease, actually more prominent on the left than the right. Echocardiogram showed small PFO. He has not had any recurrent events. OBJECTIVE: His exam today is unremarkable. IMPRESSION: Probable transient ischemic attack, recommend aspirin and Plavix for 3 months and then aspirin. Advised the patient to minimize alcohol use as it may increase the risk of GI bleeding. Dr. Briones and I discussed having the patient have a venous Doppler of the lower extremity and hypercoagulable state workup given his young age, absence of traditional risk factors and this transient ischemic attack. 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 RA Barlow MD [facility]
--- NOTE | 2017-08-07 13:28 | Progress Note ---
Medicine Progress Note Date & Time of Visit: Aug 07, 2017 at 13:28 . Subjective Doing well. No headache or focal neurologic symptoms. No chest pain, cough, shortness of breath, nausea, vomiting. . Objective Last 8 Hrs Date Time Temp Pulse Resp B/P (MAP) Pulse Ox O2 Delivery O2 Flow Rate FiO2 08/07/17 12:00 99 Room Air 08/07/17 11:49 36.8 74 16 114/60 (78) 96 08/07/17 08:08 37.1 74 20 109/69 (82) 98 08/07/17 08:00 99 Room Air Physical Exam: General- no distress Lungs- clear to auscultation; no respiratory distress Cardiovascular- RRR; no murmur; no gallop; no JVD; no pretibial edema Abdomen- + bowel sounds, soft, nontender Extremities- no cyanosis; no calf tenderness Neuro- alert, oriented; PERRL, EOMI; no facial palsy; no dysarthria; motor strength upper and lower extremities grossly intact Skin- warm & dry . Laboratory Results: Last 24 Hours Test 08/07/17 12:30 Assessment & Plan PANAKJ WEAKNESS Experienced episode of right upper extremity weakness lasting for about [address] head negative. CTA neck and head negative. MRI brain without contrast negative for acute pathology, but showed " nonspecific multifocal white matter signal abnormalities, possibly chronic small vessel ischemic change." Echocardiogram demonstrated a patent foramen ovale. Venous duplex lower extremities negative. It was felt that the patient may have had a TIA. Antiplatelet therapy with aspirin and clopidogrel for 3 months followed by monotherapy with aspirin thereafter recommended. LDL-c was 81. Lipid-lowering therapy recommended in light of the possible TIA and small vessel ischemic changes noted on MRI. Started on atorvastatin 40 mg daily. Hypercoagulable workup ordered (protein C, protein S, anti-thrombin III, factor V Leiden mutation, anticardiolipin antibodies, prothrombin gene mutation)- results pending at the time of discharge. Outpatient cardiac event monitor recommended. VTE PROPHYLAXIS SCD's ordered. Ambulating. DISPOSITION Discharged to home. Family Medicine follow-up with Dr. Lunsford. Neurology follow-up with Dr. Powell. . Current Inpatient Medications: Current Inpatient Medications Medications (Trade) Dose Ordered Sig/Jumana Route Start Time Stop Time Status Last Admin Dose Admin Acetaminophen (Tylenol Tab) 650 mg Q4H PRN PO 08/06/17 01:15 09/05/17 01:14 08/06/17 11:43 650 MG Ondansetron HCl (Zofran Inj) 4 mg Q6H PRN IV 08/06/17 01:15 09/05/17 01:14 Aspirin (Ecotrin Tab) 81 mg QAM PO 08/06/17 09:00 09/05/17 08:59 08/07/17 08:01 81 MG Thiamine HCl (Vitamin B-1 Tab) 100 mg QAM PO 08/06/17 09:00 09/05/17 08:59 08/07/17 08:02 100 MG Folic Acid (Folvite Tab) 1 mg QAM PO 08/06/17 09:00 09/05/17 08:59 08/07/17 08:02 1 MG Miscellaneous Information (Pharmacist Discharge Med Rec Consult) 1 ea UD PRN N/A 08/06/17 01:30 09/05/17 01:29 Miscellaneous (Iv Fluids Completed) 1 ea PRN PRN N/A 08/06/17 01:45 08/06/18 01:44
[2017-08-07] MEDS ORDERED: ASPI-428 PO (13:34)
[2017-08-07] MEDS ORDERED: PLV75 PO (13:34)
[2017-08-07] MEDS ORDERED: LPT40 PO (13:35)
--- NOTE | 2017-08-07 13:47 | Discharge Instructions ---
Discharge Instructions Date of Service Aug 07, 2017. Admission Reason for Admission: Right Arm Weakness Discharge Discharge Diagnosis / Problem: possible TIA (ministroke) Discharge Goals Goal(s): Improve function, Improve disease control Activity Recommendations Activity Limitations: resume your previous activity . Instructions / Follow-Up Instructions / Follow-Up APPOINTMENTS: FAMILY MEDICINE 08/11/2017 11:00 AM Joe Lunsford III, MD NEUROLOGY Dr. Barlow Please ask Dr. Lunsford to make referral. OTHER INSTRUCTIONS: You may have had a TIA (ministroke). Take aspirin (Ecotrin) 81 mg daily, tentatively long-term. Take clopidogrel (Plavix) 75 mg daily for 3 months. Your cholesterol levels were OK, but if you had a ministroke you want them to be even lower. Take atorvastatin (Lipitor) 40 mg daily. We did several tests to look for conditions that may increase your risk for having strokes. These are special tests and will take 1-2 weeks for results to come back. You should have a heart monitor to look for irregular heart rhythms. Please ask Dr. Lunsford or Dr. Barlow to make arrangements. Seek medical attention if you have: * temperature above 101 * chest pain or trouble breathing * abdominal pain, nausea, vomiting * diarrhea, dark stools or bloody stools * headache, trouble with vision, trouble speaking, weakness in arms or legs, trouble walking * any unanswered questions or concerns Call [phone] if symptoms are severe. Call if you have any questions or problems. My cell # is [phone]. You can also reach a [facility] hospitalist on duty at [facility] 24 hours a day by calling [phone]. Please take good care of yourself. Joe Bejarano . Risk Factors for Stroke: You can reduce your chances of stroke by working with your medical provider to adopt a healthy lifestyle. Some specific ways to lower your chance of stroke are: * If you are a smoker, now is the time to stop smoking cigarettes * If you are diabetic, improve the control of your blood sugars * Avoid excessive amounts of alcohol * Control high blood pressure * Lose weight if you are overweight * Be sure to lead an active lifestyle * Eat a healthy diet low in salt, cholesterol and fat You should know about other risk factors for stroke that you are unable to control. These include: * Age 55 years or older * Male gender * Certain racial groups: , or / * Family History of Stroke, Mini stroke or Heart Attack * Sickle Cell Disease Follow Up: It is important for you to keep your follow up appointments with your medical provider. Current Hospital Diet Patient's current hospital diet: AHA Diet (Heart Healthy) Discharge Diet Recommended Diet: AHA Diet (Heart Healthy) Procedures Procedures Performed: CT brain- no sign of stroke CT angiogram- no sign of blockage in carotid arteries in neck or brain arteries MRI brain- very small spots in brain, probably due to blood vessel disease in small blood vessels echocardiogram- small patent forament ovale ("PFO") = small hole between chambers of heart MRI cervical spine (neck)- some arthritis and disc disease, but nothing severe enough to explain right arm weakness ultrasound legs- no blood clots Pending Studies Studies pending at discharge: yes List of pending studies: tests to look for abnormal blood clotting conditions Laboratory Results Hemoglobin A1c Test 08/06/17 06:30 Range/Units Estimated Average Glucose 108 mg/dl Hemoglobin A1c 5.4 4.5-5.6 % Lipid Panel Test 08/06/17 06:30 Range/Units Triglycerides Level 63 0-150 mg/dl Cholesterol Level 141 0-200 mg/dl HDL Cholesterol 47 mg/dl Cholesterol/HDL Ratio 3.0 LDL Cholesterol, Calculated 81 mg/dl Medical Emergencies . Who to Call and When: Medical Emergencies: Call 911 immediately if you experience any of the following warning signs and symptoms of Stroke: * Sudden numbness or weakness of the face, arm or leg, especially on one side of the body * Sudden confusion, trouble speaking or understanding * Sudden trouble seeing in one or both eyes * Sudden trouble walking, dizziness, loss of balance or coordination * Sudden severe headache with no cause Do not delay calling 911 if you experience any warning signs or symptoms of a stroke. Delay in seeking medical attention may affect what treatments can be given to you. . Non-Emergent Contact Non-Emergency issues call your: Primary Care Provider, Hospital Doctor, Neurologist . . "Provider Documentation" section prepared by Joe Bejarano. . Stroke Core Measures Reason no t-PA for Stroke: Treatment not indicated Reason no antithrom by day 2: Treatment provided - N/A Reason no antithrom at D/C: Treatment provided - N/A Reason no statin at D/C: Treatment provided - N/A Reason no anticoag w/a fib: Treatment not indicated
--- NOTE | 2017-08-07 14:24 | Pharmacy Progress Note ---
Pharmacist Stroke Counseling Date of Service Aug 07, 2017. Scope Pharmacy has been consulted to provide medication discharge counseling for this patient admitted with ischemic stroke/hemorrhagic stroke/ transient ischemic attack as per the Pharmacist Discharge Counseling for Stroke Patients Protocol. 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 This includes indication, common adverse reactions, drug interactions, and medication administration. Medication counseling has been employed using the teach-back method to ensure understanding. Outcome The patient has demonstrated understanding of the medications. Please note, they are aware that the pharmacist will call them within 72 hours post-discharge to confirm that the appropriate medications are being taken and answer any further medication related questions the patient might have at that time. * Patient has declined phone follow up. He agrees to followup with PCP/ neurologist moving forward. Additional comments: Thank you for allowing pharmacy to be involved in the care of this patient. Please call [phone] or [phone] with any additional questions
--- NOTE | 2017-08-09 02:05 | Discharge Summary ---
Discharge Summary Date of Service Aug 09, 2017. Discharge Summary Admission Date: Aug 06, 2017 at 01:18 Discharge Date: Aug 07, 2017 Discharge Disposition: Home Principal Diagnosis: right upper extremity weakness-possible transient ischemic attack . Secondary Diagnoses/Problems: patent foramen ovale leukoencephalopathy . Procedures: CT head CTA cervical and intracranial vessels MRI brain Echocardiogram Venous duplex lower extremities . Consultations: Neurology with Dr. Powell . Pending Studies/Follow-Up: Pending lab results: Protein C, protein S, Antithrombin III, factor V Leiden mutation, cardiolipin antibodies, prothrombin gene mutation). Please make arrangements for 2 week cardiac event monitor. Please make referral to Dr. Powell for Neurology follow-up. . Medication Reconciliation New Medications: Aspirin (Ecotrin Low Strength) 81 Mg Tab 81 MG PO DAILY, #30 TAB 12 Refills Atorvastatin (Lipitor) 40 Mg Tab 40 MG PO DAILY, #30 TAB 5 Refills Clopidogrel Bisulfate (Clopidogrel) 75 Mg Tab 75 MG PO DAILY, #30 TAB 2 Refills Continued Medications: Ibuprofen Tab (Advil) 200 Mg Tab 600 MG PO TID PRN for Headache or Pain, TAB Tadalafil (Cialis) 10 Mg Tab 10 MG PO UD, TAB Admission Information HPI (per Admitting provider): Patient is a 51-year-old male with past medical history of alcohol use disorder presents with history of sudden onset of right arm weakness and numbness. 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 He states the symptoms resolved after 5 minutes and again had recurrence of right arm weakness and numbness. Symptoms persisted for about 1 hour prior to ED arrival. Patient also reports a brief episode when patient could not lift his right arm above his shoulder level. Currently his symptoms resolved while in ED. patient states he is under a lot of stress lately secondary to work. 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 Denies any drug use or alcohol intake today. Preliminary Neck CTA showed no definite evidence of arterial thoracic outlet syndrome and CT head showed no acute intracranial abnormality. Denies any history of chest pain, SOB, dizziness, pedal edema, diaphoresis, cough, fever, chills, fall, head trauma, LOC, headache, change in vision, slurred speech, facial deformity, bowel/bladder incontinence, nausea, vomiting, abdominal pain, diarrhea, dysuria. . 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 head negative. CTA neck and head negative. MRI brain without contrast negative for acute pathology, but showed " nonspecific multifocal white matter signal abnormalities, possibly chronic small vessel ischemic change." Echocardiogram demonstrated a patent foramen ovale. Venous duplex lower extremities negative. It was felt that the patient may have had a TIA. Antiplatelet therapy with aspirin and clopidogrel for 3 months followed by monotherapy with aspirin thereafter recommended. LDL-c was 81. Lipid-lowering therapy recommended in light of the possible TIA and small vessel ischemic changes noted on MRI. Started on atorvastatin 40 mg daily. Hypercoagulable workup ordered (protein C, protein S, anti-thrombin III, factor V Leiden mutation, anticardiolipin antibodies, prothrombin gene mutation)- results pending at the time of discharge. Outpatient cardiac event monitor recommended. VTE PROPHYLAXIS SCD's ordered. Ambulating. DISPOSITION Discharged to home. Family Medicine follow-up with Dr. Lunsford. Neurology follow-up with Dr. Powell. . Discharge Instructions Date of Service Aug 07, 2017. Admission Reason for Admission: Right Arm Weakness Discharge Discharge Diagnosis / Problem: possible TIA (ministroke) Discharge Goals Goal(s): Improve function, Improve disease control Activity Recommendations Activity Limitations: resume your previous activity . Instructions / Follow-Up Instructions / Follow-Up APPOINTMENTS: FAMILY MEDICINE 08/11/2017 11:00 AM Joe Lunsford III, MD NEUROLOGY Dr. Barlow Please ask Dr. Lunsford to make referral. OTHER INSTRUCTIONS: You may have had a TIA (ministroke). Take aspirin (Ecotrin) 81 mg daily, tentatively long-term. Take clopidogrel (Plavix) 75 mg daily for 3 months. Your cholesterol levels were OK, but if you had a ministroke you want them to be even lower. Take atorvastatin (Lipitor) 40 mg daily. We did several tests to look for conditions that may increase your risk for having strokes. These are special tests and will take 1-2 weeks for results to come back. You should have a heart monitor to look for irregular heart rhythms. Please ask Dr. Lunsford or Dr. Barlow to make arrangements. Seek medical attention if you have: * temperature above 101 * chest pain or trouble breathing * abdominal pain, nausea, vomiting * diarrhea, dark stools or bloody stools * headache, trouble with vision, trouble speaking, weakness in arms or legs, trouble walking * any unanswered questions or concerns Call 911 if symptoms are severe. Call if you have any questions or problems. My cell # is [phone]. You can also reach a [facility] hospitalist on duty at [facility] 24 hours a day by calling [phone]. Please take good care of yourself. Joe Bejarano . Risk Factors for Stroke: You can reduce your chances of stroke by working with your medical provider to adopt a healthy lifestyle. Some specific ways to lower your chance of stroke are: * If you are a smoker, now is the time to stop smoking cigarettes * If you are diabetic, improve the control of your blood sugars * Avoid excessive amounts of alcohol * Control high blood pressure * Lose weight if you are overweight * Be sure to lead an active lifestyle * Eat a healthy diet low in salt, cholesterol and fat You should know about other risk factors for stroke that you are unable to control. These include: * Age 55 years or older * Male gender * Certain racial groups: , or / * Family History of Stroke, Mini stroke or Heart Attack * Sickle Cell Disease Follow Up: It is important for you to keep your follow up appointments with your medical provider. Current Hospital Diet Patient's current hospital diet: AHA Diet (Heart Healthy) Discharge Diet Recommended Diet: AHA Diet (Heart Healthy) Procedures Procedures Performed: CT brain- no sign of stroke CT angiogram- no sign of blockage in carotid arteries in neck or brain arteries MRI brain- very small spots in brain, probably due to blood vessel disease in small blood vessels echocardiogram- small patent forament ovale ("PFO") = small hole between chambers of heart MRI cervical spine (neck)- some arthritis and disc disease, but nothing severe enough to explain right arm weakness ultrasound legs- no blood clots Pending Studies Studies pending at discharge: yes List of pending studies: tests to look for abnormal blood clotting conditions Laboratory Results Hemoglobin A1c Test 08/06/17 06:30 Range/Units Estimated Average Glucose 108 mg/dl Hemoglobin A1c 5.4 4.5-5.6 % Lipid Panel Test 08/06/17 06:30 Range/Units Triglycerides Level 63 0-150 mg/dl Cholesterol Level 141 0-200 mg/dl HDL Cholesterol 47 mg/dl Cholesterol/HDL Ratio 3.0 LDL Cholesterol, Calculated 81 mg/dl Medical Emergencies . Who to Call and When: Medical Emergencies: Call 911 immediately if you experience any of the following warning signs and symptoms of Stroke: * Sudden numbness or weakness of the face, arm or leg, especially on one side of the body * Sudden confusion, trouble speaking or understanding * Sudden trouble seeing in one or both eyes * Sudden trouble walking, dizziness, loss of balance or coordination * Sudden severe headache with no cause Do not delay calling 911 if you experience any warning signs or symptoms of a stroke. Delay in seeking medical attention may affect what treatments can be given to you. . Non-Emergent Contact Non-Emergency issues call your: Primary Care Provider, Hospital Doctor, Neurologist . . "Provider Documentation" section prepared by Joe Bejarano. . Stroke Core Measures Reason no t-PA for Stroke: Treatment not indicated Reason no antithrom by day 2: Treatment provided - N/A Reason no antithrom at D/C: Treatment provided - N/A Reason no statin at D/C: Treatment provided - N/A Reason no anticoag w/a fib: Treatment not indicated
[2017-08-13 12:31] LABS: ANTICARDIOLIPID AB IGA <11 APL (< = 11)
== END 2017-08-07 14:24 | disposition home or self-care (01) ==
LOC: C.EDB 20:34 → C.2T 08-06 01:18 → ENRESERV 08-06 01:29
PROVIDERS: ADMIT Internal Medicine; ATTEND Hospitalist
DX: R53.1 Weakness (principal); Q21.1 Atrial septal defect; G93.49 Other encephalopathy; Z79.82 Long term (current) use of aspirin; Z79.899 Other long term (current) drug therapy; Z82.49 Family history of ischemic heart disease and other diseases of the circulatory system; Z80.1 Family history of malignant neoplasm of trachea, bronchus and lung; Z82.3 Family history of stroke